=== PATIENT | male | born 1940 | race Caucasian/White ===

== ENCOUNTER 2018-05-07 16:37 | Inpatient (IN) ==
[2018-05-07 17:32] LABS: Baso # (Auto) 0.1 th/mm3 (0.0-0.2); Baso % (Auto) 0.8 % (0.0-2.0); Eos # (Auto) 0.2 th/mm3 (0.0-0.4); Eos % (Auto) 2.4 % (0.0-4.0); Hematocrit 35.7 % (39.0-51.0); Hemoglobin 12.7 gm/dL (13.0-17.0); Lymph # (Auto) 1.5 th/mm3 (1.0-4.8); Lymph % (Auto) 18.5 % (9.0-44.0); Mean Corpuscular HGB Conc 35.7 % (32.0-36.0); Mean Corpuscular Hemoglobin 32.6 pg (27.0-34.0); Mean Corpuscular Volume 91.2 fL (80.0-100.0); Mean Platelet Volume 7.7 fL (7.0-11.0); Mono # (Auto) 0.9 th/mm3 (0.0-0.9); Mono % (Auto) 11.1 % (0.0-8.0); Neut # (Auto) 5.6 th/mm3 (1.8-7.7); Neut % (Auto) 67.2 % (16.0-70.0); Platelet Count 274 th/mm3 (150-450); Red Blood Count 3.91 mil/mm3 (4.50-5.90); Red Cell Distribution Width 13.9 % (11.6-17.2); White Blood Count 8.4 th/mm3 (4.0-11.0)
--- NOTE | 2018-05-07 17:50 | ED ---
HPI General Chief complaint: Medical Clearance Stated complaint: blood in urine Time Seen by Provider: 05/07/18 16:46 Source: patient, family and old records reviewed Mode of arrival: ambulatory Limitations: no limitations History of Present Illness HPI Narrative: 77-year-old male the presents to the ED for evaluation of hematuria. Per patient has had hematuria since this morning. Per patient has had 3 bouts of hematuria. Per patient is just blood. He does take Coumadin. He was actually here yesterday for a fall he sustained. He apparently had a significant injury to his left hand and fingers where he had dislocation to require multiple attempts to relocate as well as a laceration that required stitches. Patient was put on a splint. No scans of the belly were done however. He did complain of some abdominal pain but states that for the most part he does not really have abdominal pain unless he moves a certain way and usually on he gets into the car. Otherwise he has no pain. He denies any weakness. No flank pain. No history of kidney stones. No pain with urination. Patient does show me the sample of urine he gave us any its bright red blood. He denies any history of this in the past. Per patient he does not know what his Coumadin level is. Has not seen anybody for this. Injury just occurred yesterday and he was seen here at this hospital yesterday. Home Medications Medication Instructions Recorded Confirmed bumetanide 2 mg PO TID 05/06/18 05/07/18 carvedilol 3.125 mg PO BID 05/06/18 05/07/18 diltiazem HCl 30 mg PO QID 05/06/18 05/07/18 finasteride 5 mg PO DAILY 05/06/18 05/07/18 levothyroxine 25 mcg PO DAILY 05/06/18 05/07/18 niacin 1,000 mg PO BID 05/06/18 05/07/18 pyridostigmine bromide 60 mg PO Q6H 05/06/18 05/07/18 simvastatin 10 mg PO QPM 05/06/18 05/07/18 warfarin 6 mg PO DAILY 05/06/18 05/07/18 cyanocobalamin (vitamin B-12) 1,000 mcg PO DAILY 05/07/18 05/07/18 potassium chloride 10 meq PO DAILY 05/07/18 05/07/18 Previous Rx's Medication Instructions Recorded cephalexin [Keflex] 500 mg PO Q6H 7 Days #28 cap 05/06/18 Allergies Allergy/AdvReac Type Severity Reaction Status Date / Time No Known Allergies Allergy Verified 05/06/18 06:55 Review of Systems ROS: all other systems reviewed are negative PENDING SALE TO [facility] Medical History Medical History A-fib (Acute) BPH (benign prostatic hyperplasia) (Acute) Diabetes (Acute) High cholesterol (Acute) Hypertension (Acute) Hypokalemia (Acute) Hypothyroid (Acute) Myasthenia gravis (Acute) TIA (transient ischemic attack) (Acute) Social History Social History Substance History: No History of Abuse Smoking Status: Former smoker Tobacco Type: Cigarettes How Often Do You Have a Drink Containing Alcohol: Monthly or less Recent Travel in [facility] within the Last 8 Weeks: No Recent Out of Country Travel within the Last 8 Weeks: No Immunization History Tetanus Immunization: <5 Years Exam Narrative Exam Narrative: GENERAL: well appearing but obese SKIN: Focused skin assessment warm/dry. HEAD: Atraumatic. Normocephalic. EYES: Pupils equal and round. No scleral icterus. No injection or drainage. ENT: No nasal bleeding or discharge. Mucous membranes pink and moist. Tongue is midline. No uvula deviation. NECK: Trachea midline. No JVD. CARDIOVASCULAR: Regular rate and rhythm. No murmur appreciated. RESPIRATORY: No accessory muscle use. Clear to auscultation. Breath sounds equal bilaterally. GASTROINTESTINAL: Abdomen soft, non-tender, nondistended. Hepatic and splenic margins not palpable. MUSCULOSKELETAL: No obvious deformities. No clubbing. No cyanosis. No edema. Full range of motion of the upper and lower extremities bilaterally. Patient does have a splint noted on the left arm. 2+ pulses bilaterally. Sensation is intact bilaterally. NEUROLOGICAL: Awake and alert. No obvious cranial nerve deficits. Motor grossly within normal limits. Normal speech. PSYCHIATRIC: Appropriate mood and affect; insight and judgment normal. Course Initial Documented Vital Signs Temperature 97.6 F 05/07/18 16:42 Pulse Rate 87 05/07/18 16:42 Respiratory Rate 20 05/07/18 16:42 Blood Pressure 146/82 H 05/07/18 16:42 Pulse Oximetry 95 05/07/18 16:42 Last Documented Vital Signs Temperature 97.6 F 05/07/18 16:42 Pulse Rate 87 05/07/18 16:42 Respiratory Rate 20 05/07/18 16:42 Blood Pressure 146/82 H 05/07/18 16:42 Pulse Oximetry 95 05/07/18 16:42 Medical Decision Making MDM Narrative Medical decision making narrative: 77-year-old male the presents to the ED for evaluation of blood in the urine. Patient was properly examined and was found to have signs and symptoms consistent with blood in the urine. Physical exam is very reassuring. Patient does not really have any pain in the flank or left upper quadrant with touch. Pain is only with movement especially when the patient gets in and out of the car. This pain cannot be reproduced bedside. Patient is on Coumadin and did hit his abdomen on his way down. I do recommend labs and imaging because of this. Patient agrees with this. Labs and imaging showed hemorrhage, coagulopathy. Mild anemia. At this time recommendation by my attending Dr. Shaikh is for admission, start vitamin K and FFP. Case was discussed with Dr. dawn who recommends no treatment from his standpoint and patient can follow-up outpatient when patient gets discharged. He recommends fixing the coagulopathy for now. Case was discussed with Dr. Carvajal who agrees to admission to her service. I spoke with the patient who agrees to admission. Medical Screen Exam Complete: Yes Emergency Medical Condition: Yes Differential Diagnosis Differential Diagnosis: Trauma to the bladder versus hematuria versus UTI versus cystitis versus kidney failure versus kidney injury versus active bleed Medical Records Medical records reviewed: Yes I reviewed the patient's medical records. Lab Data Lab results reviewed: Yes I reviewed the patient's lab results. Result diagrams: 05/07/18 17:09 05/07/18 17:09 Lab Results 05/07/18 05/07/18 05/07/18 Range/Units 17:09 17:09 17:09 WBC 8.4 (4.0-11.0) th/mm3 RBC 3.91 L (4.50-5.90) mil/mm3 Hgb 12.7 L (13.0-17.0) gm/dL Hct 35.7 L (39.0-51.0) % MCV 91.2 (80.0-100.0) fL MCH 32.6 (27.0-34.0) pg MCHC 35.7 (32.0-36.0) % RDW 13.9 (11.6-17.2) % Plt Count 274 (150-450) th/mm3 MPV 7.7 (7.0-11.0) fL Neut % (Auto) 67.2 (16.0-70.0) % Lymph % (Auto) 18.5 (9.0-44.0) % Stevens % (Auto) 11.1 H (0.0-8.0) % Eos % (Auto) 2.4 (0.0-4.0) % Baso % (Auto) 0.8 (0.0-2.0) % Neut # (Auto) 5.6 (1.8-7.7) th/mm3 Lymph # (Auto) 1.5 (1.0-4.8) th/mm3 Stevens # (Auto) 0.9 (0.0-0.9) th/mm3 Eos # (Auto) 0.2 (0.0-0.4) th/mm3 Baso # (Auto) 0.1 (0.0-0.2) th/mm3 WBC Differential . Differential Comment Auto diff final PT 93.7 H (9.8-11.6) sec INR 9.4 H* Ratio APTT 78.7 H (24.3-30.1) sec Sodium 142 (136-145) meq/L Potassium 3.9 (3.5-5.1) meq/L Chloride 102 (98-107) meq/L Carbon Dioxide 33.3 H (21.0-32.0) meq/L Anion Gap 7 (5-15) meq/L BUN 23 H (7-18) mg/dL Creatinine 1.54 H (0.60-1.30) mg/dL Estimated GFR 44 L (>89) mL/min Random Glucose 109 H (74-106) mg/dL Calcium 8.6 (8.5-10.1) mg/dL Urine Color (Yellw/Straw) Urine Clarity (Clear) Urine pH (5.0-8.5) Ur Specific [place] (1.002-1.035) Urine Protein (Neg-Trace) mg/dL Urine Glucose (UA) (Negative) mg/dL Urine Ketones (Negative) mg/dL Urine Occult Blood (Negative) Urine Nitrate (Negative) Urine Bilirubin (Negative) Urine Urobilinogen (Less than 2) mg/dL Ur Leukocyte Esterase (Negative) Urine RBC (0-3) /hpf Urine WBC (0-5) /hpf Ur Microscopic Review 05/07/18 Range/Units 17:09 WBC (4.0-11.0) th/mm3 RBC (4.50-5.90) mil/mm3 Hgb (13.0-17.0) gm/dL Hct (39.0-51.0) % MCV (80.0-100.0) fL MCH (27.0-34.0) pg MCHC (32.0-36.0) % RDW (11.6-17.2) % Plt Count (150-450) th/mm3 MPV (7.0-11.0) fL Neut % (Auto) (16.0-70.0) % Lymph % (Auto) (9.0-44.0) % Stevens % (Auto) (0.0-8.0) % Eos % (Auto) (0.0-4.0) % Baso % (Auto) (0.0-2.0) % Neut # (Auto) (1.8-7.7) th/mm3 Lymph # (Auto) (1.0-4.8) th/mm3 Stevens # (Auto) (0.0-0.9) th/mm3 Eos # (Auto) (0.0-0.4) th/mm3 Baso # (Auto) (0.0-0.2) th/mm3 WBC Differential Differential Comment PT (9.8-11.6) sec INR Ratio APTT (24.3-30.1) sec Sodium (136-145) meq/L Potassium (3.5-5.1) meq/L Chloride (98-107) meq/L Carbon Dioxide (21.0-32.0) meq/L Anion Gap (5-15) meq/L BUN (7-18) mg/dL Creatinine (0.60-1.30) mg/dL Estimated GFR (>89) mL/min Random Glucose (74-106) mg/dL Calcium (8.5-10.1) mg/dL Urine Color Red H (Yellw/Straw) Urine Clarity Marked H (Clear) Urine pH 7.0 (5.0-8.5) Ur Specific [place] 1.006 (1.002-1.035) Urine Protein 300 or greater H (Neg-Trace) mg/dL Urine Glucose (UA) Negative (Negative) mg/dL Urine Ketones Negative (Negative) mg/dL Urine Occult Blood Large H (Negative) Urine Nitrate Negative (Negative) Urine Bilirubin Negative (Negative) Urine Urobilinogen 0.2 (Less than 2) mg/dL Ur Leukocyte Esterase Negative (Negative) Urine RBC (0-3) /hpf Urine WBC 22 H (0-5) /hpf Ur Microscopic Review Not Reportable Imaging Data Attestation: I personally reviewed and interpreted this imaging study as follows : Radiologist's impression: Abdomen/Pelvis CT 05/07/18 17:08 CONCLUSION: 1. Apparent hemorrhage within the bladder with mild dilatation of the left ureter. In spite of all this I do not see left renal stone or contusion in this individual with a history of trauma and left upper quadrant pain. 2. The right kidney is small containing several cysts. Discharge Plan Discharge Disposition Patient Disposition: 30 Still Patient Discharge Details Diagnosis: Hematuria, Coagulopathy Physicians Team ED Provider: Kaleb Shaikh ED Midlevel Provider: Ben Lunsford Primary Care Provider: Viviana Hurtado Attending Provider: Veronica Carvajal Status ED Status: Admitted Patient
[2018-05-07 18:01] LABS: Clarity,Urine Marked (Clear); Color,Urine Red (Yellw/Straw)
[2018-05-07 18:02] LABS: Bilirubin,Urine Negative (Negative); Glucose,Urine (UA) Negative (Negative); Nitrite,Urine Negative (Negative); Specific Gravity,Urine 1.006 (1.002-1.035)
[2018-05-07 18:03] LABS: Leukocyte Esterase,Urine Negative (Negative); Urobilinogen,Urine 0.2 mg/dL (Less than 2)
[2018-05-07 18:04] LABS: Calcium 8.6 mg/dL (8.5-10.1); Carbon Dioxide 33.3 meq/L (21.0-32.0); Potassium 3.9 meq/L (3.5-5.1)
[2018-05-07 18:10] LABS: Prothrombin Time 93.7 sec (9.8-11.6)
[2018-05-07 18:11] LABS: Activated Partial Thrombo Time 78.7 sec (24.3-30.1)
[2018-05-07 18:13] LABS: INR 9.4 Ratio
--- NOTE | 2018-05-07 20:28 | CT ---
EXAM DATE: 05/07/2018 7:59 PM EDT AGE/SEX: 77 years / Male INDICATIONS: Left upper quadrant pain with hematuria. Fell yesterday. CLINICAL DATA: This is the patient's initial encounter. Patient reports that signs and symptoms have been present for 1 day and indicates a pain score of 5/10. MEDICAL/SURGICAL HISTORY: Diabetes. Hypertension. Cerebrovascular disease. None. ORAL CONTRAST: No oral contrast ingested. RADIATION DOSE: 26.79 CTDI (mGy) ; Patient body habitus COMPARISON: No prior exams available for comparison. TECHNIQUE: Multiple contiguous axial images were obtained through the abdomen and pelvis following b olus infusion of 97 ml Omnipaque 350 (iohexol) nonionic water-soluble contrast as a single exam dos e. No oral contrast ingested. Using automated exposure control and adjustment of the mA and/or kV ac cording to patient size, radiation dose was kept as low as reasonably achievable to obtain optimal di agnostic quality images. DICOM format image data is available electronically for review and comparis on. FINDINGS: Lower Lungs: The visualized lower lungs are clear. Liver: Liver is small. Colon sits anterior to the liver. Gallbladder is unremarkable. Spleen: Spleen appears normal. There is no contusion in the left upper quadrant. Pancreas: Unremarkable without mass or calcification. Kidneys: Bilateral renal cyst with a small right kidney. There is no renal contusion or stone. There is mild prominence of the left ureter with a fluid/fluid level in the bladder probably blood. Trauma is the most likely etiology given the history but I don't see a renal contusion as a source. Adrenal Glands: Unremarkable. Aorta: The aorta and proximal iliac vessels are grossly unremarkable without aneurysmal dilation. Bowel/Mesentery: The bowel loops are grossly unremarkable. The cecum and sigmoid colon have a normal configuration. Abdominal Wall: Intact. Retroperitoneum: No evidence of adenopathy in the retrocrural, para-aortic, or deep pelvic regions. Bladder: Fluid/fluid level in the bladder most likely hematocrit level from hemorrhage. Reproductive Organs: Prominent prostate Inguinal: The inguinal region is unremarkable without evidence of adenopathy. Bony Structures: Unremarkable. CONCLUSION: 1. Apparent hemorrhage within the bladder with mild dilatation of the left ureter. In spite of all t his I do not see left renal stone or contusion in this individual with a history of trauma and left u pper quadrant pain. 2. The right kidney is small containing several cysts. Electronically signed by: Elliott Kline MD 05/07/2018 8:27 PM EDT
[2018-05-07] MEDS ORDERED: Phytonadione Inj 10 MG/ML Vial SQ ONE (20:43)
[2018-05-07] MEDS ORDERED: Bisacodyl 10 MG Supp RECTAL PRN (21:06)
[2018-05-07] MEDS ORDERED: Acetaminophen 325 MG Tablet PO PRN (21:06)
--- NOTE | 2018-05-07 21:07 | P.HPIM ---
History of Present Illness Primary Care Physician: Viviana Hurtado History of Present Illness: This is a 77-year-old male with a PMH of HTN, Hyperlipidemia, A. fib on Coumadin and Myasthenia Gravis who presents the ER with complaints of hematuria since this morning. Seen in ER yesterday on 05/06/18 after mechanical fall w/ injury to left middle finger and abdomen, found to have left 3rd digit dislocation, s/p reduction in ER and underwent laceration repair of left finger , was d/c'd on Keflex which he has been taking as prescribed. Today, notes several episodes of hematuria. On Coumadin, last INR check approx 1mo ago per patient. On arrival, BP 146/82, HR 87, O2 sat 95% on RA, Afebrile. CBC unremarkable, hemoglobin 12.7. INR 9.4. Chemistry unremarkable except for creatinine 1.54, previously 1.36 on 05/27/2015. UA positive for hematuria. CT Abdomen/Pelvis with hemorrhage in the bladder and mild dilatation of left ureter. S/p Vitamin K in ER. Dr. Sparks consulted, will joseline in am, no surgical intervention at this time. - Diagnosis (1) Supratherapeutic INR (2) Bladder hemorrhage (3) Afib (4) Myasthenia gravis (5) Hematuria Review of Systems PAST FAMILY HISTORY: Reviewed. No h/o DM or CAD All other systems reviewed negative except as stated in HPI PMFSH - History History Provided By: Patient - Medical History Medical History: Medical History (Last Reviewed 05/07/18 @ 17:48 by KIRA Hebert) A-fib BPH (benign prostatic hyperplasia) Diabetes High cholesterol Hypertension Hypokalemia Hypothyroid Myasthenia gravis TIA (transient ischemic attack) - Tobacco History Smoking Status: Former smoker Tobacco Type: Cigarettes - Alcohol History How Often Do You Have a Drink Containing Alcohol: Monthly or less - Substance Use History Substance History: No History of Abuse - Travel History Recent Travel in the [place] Within the Last 8 Weeks: No Recent Travel Out of the Country Within the Last 8 Weeks: No - Immunization History Tetanus Immunization: <5 Years Medications and Allergies Allergies Allergy/AdvReac Type Severity Reaction Status Date / Time No Known Allergies Allergy Verified 05/06/18 06:55 Home Medications Medication Instructions Recorded Confirmed Type bumetanide 2 mg PO TID 05/06/18 05/07/18 History carvedilol 3.125 mg PO BID 05/06/18 05/07/18 History diltiazem HCl 30 mg PO QID 05/06/18 05/07/18 History finasteride 5 mg PO DAILY 05/06/18 05/07/18 History levothyroxine 25 mcg PO DAILY 05/06/18 05/07/18 History niacin 1,000 mg PO BID 05/06/18 05/07/18 History pyridostigmine bromide 60 mg PO Q6H 05/06/18 05/07/18 History simvastatin 10 mg PO QPM 05/06/18 05/07/18 History warfarin 6 mg PO DAILY 05/06/18 05/07/18 History cyanocobalamin (vitamin B-12) 1,000 mcg PO DAILY 05/07/18 05/07/18 History potassium chloride 10 meq PO DAILY 05/07/18 05/07/18 History Exam Vital signs: Vital Signs 05/07/18 16:42 Temperature 97.6 F Pulse Rate 87 Respiratory Rate 20 Blood Pressure 146/82 H Pulse Oximetry 95 Intake & Output 05/07/18 05/07/18 05/08/18 06:59 18:59 06:59 Weight 138.799 kg Narrative: PE: GENERAL: Extreme the pleasant elderly white male in no acute distress. at bedside. SKIN: Focused skin assessment warm and dry. HEENT: PERRLA, EOMI. No scleral icterus or conjunctival pallor. No lid lag or facial droop. CARDIOVASCULAR: Regular rate and rhythm. No obvious murmurs to auscultation. No chest tenderness to palpation. RESPIRATORY: No obvious rhonchi or wheezing. Clear to auscultation. Breath sounds equal bilaterally. GASTROINTESTINAL: Abdomen soft, non-tender, nondistended. BS normal. MUSCULOSKELETAL: Extremities without clubbing, cyanosis, or edema. No obvious deformities. Chronic venous stasis bilateral lower extremities, lymphedema wraps in place. LUE splint. NEUROLOGICAL: Awake, alert and oriented x4. No focal neurologic deficits. Moving both upper and lower extremities spontaneously. PSYCHIATRIC: Appropriate mood and affect. Insight and judgment normal. Results - Labs CBC & Chem 7: 05/07/18 17:09 05/07/18 17:09 Labs: Short CBC 05/07/18 Range/Units 17:09 WBC 8.4 (4.0-11.0) th/mm3 Hgb 12.7 L (13.0-17.0) gm/dL Hct 35.7 L (39.0-51.0) % Plt Count 274 (150-450) th/mm3 [facility] 05/07/18 17:09 Sodium 142 Potassium 3.9 Chloride 102 Carbon Dioxide 33.3 H BUN 23 H Creatinine 1.54 H Calcium 8.6 Urine 05/07/18 Range/Units 17:09 Urine Color Red H (Yellw/Straw) Urine Clarity Marked H (Clear) Urine pH 7.0 (5.0-8.5) Ur Specific [place] 1.006 (1.002-1.035) Urine Protein 300 or greater H (Neg-Trace) mg/dL Urine Glucose (UA) Negative (Negative) mg/dL - Imaging Impressions Abdomen/Pelvis CT 05/07/18 17:08 CONCLUSION: 1. Apparent hemorrhage within the bladder with mild dilatation of the left ureter. In spite of all this I do not see left renal stone or contusion in this individual with a history of trauma and left upper quadrant pain. 2. The right kidney is small containing several cysts. Caprini VTE Risk Assessment Caprini VTE Risk Assessment: No/Low Risk (score <= 1) VTE Pharmacological Exception Reason: Coagulopathy,INR elevated Caprini Risk Assessment Model: Point Value = 1 Point Value = 2 Point Value = 3 Point Value = 5 Age 41-60 Minor surgery BMI > 25 kg/m2 Swollen legs Varicose veins or History of unexplained or recurrent spontaneous Oral contraceptives or hormone replacement Sepsis (< 1 month) Serious lung disease, including pneumonia (< 1 month) Abnormal pulmonary function Acute myocardial infarction Congestive heart failure (< 1 month) History of inflammatory bowel disease Medical patient at bed rest Age 61-74 Arthroscopic surgery Major open surgery (> 45 min) Laparoscopic surgery (> 45 min) Malignancy Confined to bed (> 72 hours) Immobilizing plaster cast Central venous access Age >= 75 History of VTE Family history of VTE Factor V Leiden Prothrombin [id number] Lupus anticoagulant Anticardiolipin antibodies Elevated serum homocysteine Heparin-induced thrombocytopenia Other congenital or acquired thrombophilia Stroke (< 1 month) Elective arthroplasty Hip, pelvis, or leg fracture Acute spinal cord injury (< 1 month) Prophylaxis Regimen: Total Risk Factor Score Risk Level Prophylaxis Regimen 0-1 Low Early ambulation 2 Moderate Order ONE of the following: *Sequential Compression Device (SCD) *Heparin 5000 units SQ BID 3-4 Higher Order ONE of the following medications: *Heparin 5000 units SQ TID *Enoxaparin/Lovenox 40 mg SQ daily (WT < 150 kg, CrCl > 30 mL/min) *Enoxaparin/Lovenox 30 mg SQ daily (WT < 150 kg, CrCl > 10-29 mL/min) *Enoxaparin/Lovenox 30 mg SQ BID (WT < 150 kg, CrCl > 30 mL/min) AND/OR *Sequential Compression Device (SCD) 5 or more Highest Order ONE of the following medications: *Heparin 5000 units SQ TID (Preferred with Epidurals) *Enoxaparin/Lovenox 40 mg SQ daily (WT < 150 kg, CrCl > 30 mL/min) *Enoxaparin/Lovenox 30 mg SQ daily (WT < 150 kg, CrCl > 10-29 mL/min) *Enoxaparin/Lovenox 30 mg SQ BID (WT < 150 kg, CrCl > 30 mL/min) AND *Sequential Compression Device (SCD) Assessment and Plan - Assessment (1) Supratherapeutic INR Code(s): R79.1 - Abnormal coagulation profile Status: Acute (2) Bladder hemorrhage Code(s): N32.89 - Other specified disorders of bladder Status: Acute (3) Afib Code(s): I48.91 - Unspecified atrial fibrillation Status: Acute (4) Myasthenia gravis Code(s): G70.00 - Myasthenia gravis without (acute) exacerbation Status: Acute (5) Hematuria Code(s): R31.9 - Hematuria, unspecified Status: Acute - Plan A/P: 1. Hematuria: U/a w/ significant hematuria, s/p abdominal injury yesterday w/ supratherapeutic INR, will monitor closely, Dr. Sparks to follow 2. Bladder Hemorrhage: CT Abd/Pelvis w/ hemorrhage in the bladder w/ mild dilatation of left ureter, images reviewed. Dr. Sparks consulted by ER physician , will evaluate in am, no surgical intervention at this time. 3. Supratherapeutic INR: On Coumadin 6mg qd, INR 9.4, last INR check approx 1mo ago per patient, s/p Vit K in ER, will hold Coumadin, repeat INR in am. 4. A-fib: Chronic. Resume home Diltiazem, hold Coumadin as above, restart once within therapeutic range 5. Myasthenia Gravis: Chronic. Resume home medications. 6. DVT Prophylaxis: Elevated INR, hold Coumadin 7. Social work for d/c planning as needed 8. Case discussed w/ ER physician at length, labs/records/imaging reviewed by me. (5) Hematuria Qualifiers: Hematuria type: gross Qualified Code(s): R31.0 - Gross hematuria
[2018-05-07] MEDS: Sod Chloride 0.9% Inj 1,000 ML IV.CONT SCH (21:41)
[2018-05-07 22:09] LABS: Baso # (Auto) 0.1 th/mm3 (0.0-0.2); Baso % (Auto) 0.9 % (0.0-2.0); Eos # (Auto) 0.2 th/mm3 (0.0-0.4); Eos % (Auto) 2.3 % (0.0-4.0); Hematocrit 34.6 % (39.0-51.0); Hemoglobin 12.2 gm/dL (13.0-17.0); Lymph # (Auto) 1.4 th/mm3 (1.0-4.8); Lymph % (Auto) 17.2 % (9.0-44.0); Mean Corpuscular HGB Conc 35.1 % (32.0-36.0); Mean Corpuscular Hemoglobin 32.4 pg (27.0-34.0); Mean Corpuscular Volume 92.3 fL (80.0-100.0); Mean Platelet Volume 8.1 fL (7.0-11.0); Mono # (Auto) 0.9 th/mm3 (0.0-0.9); Neut # (Auto) 5.5 th/mm3 (1.8-7.7); Neut % (Auto) 68.6 % (16.0-70.0); Platelet Count 269 th/mm3 (150-450); Red Blood Count 3.75 mil/mm3 (4.50-5.90); Red Cell Distribution Width 13.9 % (11.6-17.2); White Blood Count 8.1 th/mm3 (4.0-11.0)
[2018-05-07] MEDS: Pyridostigmine Bromide 60 MG Tablet PO SCH (23:21)
[2018-05-08] MEDS: Pyridostigmine Bromide 60 MG Tablet PO SCH ×4 (03:14→20:54)
[2018-05-08 07:09] LABS: Baso # (Auto) 0.1 th/mm3 (0.0-0.2); Baso % (Auto) 1.2 % (0.0-2.0); Eos # (Auto) 0.1 th/mm3 (0.0-0.4); Eos % (Auto) 1.3 % (0.0-4.0); Hematocrit 34.6 % (39.0-51.0); Hemoglobin 11.3 gm/dL (13.0-17.0); Lymph # (Auto) 1.3 th/mm3 (1.0-4.8); Lymph % (Auto) 16.5 % (9.0-44.0); Mean Corpuscular HGB Conc 32.6 % (32.0-36.0); Mean Corpuscular Hemoglobin 30.4 pg (27.0-34.0); Mean Corpuscular Volume 93.2 fL (80.0-100.0); Mono # (Auto) 0.7 th/mm3 (0.0-0.9); Mono % (Auto) 9.2 % (0.0-8.0); Neut # (Auto) 5.7 th/mm3 (1.8-7.7); Neut % (Auto) 71.8 % (16.0-70.0); Platelet Count 319 th/mm3 (150-450); Red Blood Count 3.72 mil/mm3 (4.50-5.90); Red Cell Distribution Width 13.9 % (11.6-17.2)
[2018-05-08 07:37] LABS: Albumin 2.7 g/dL (3.4-5.0); Anion Gap 7 meq/L (5-15); Aspartate Aminotransferase 16 U/L (15-37); Blood Urea Nitrogen 22 mg/dL (7-18); Calcium 8.5 mg/dL (8.5-10.1); Chloride 100 meq/L (98-107); Glomerular Filtration Rate 50 mL/min (>89); Glucose,Random 122 mg/dL (74-106); Potassium 3.7 meq/L (3.5-5.1); Sodium 138 meq/L (136-145)
[2018-05-08 07:38] LABS: Alanine Aminotransferase 15 U/L (12-78)
[2018-05-08 07:40] LABS: Alkaline Phosphatase 69 U/L (45-117); Total Protein 7.6 g/dL (6.4-8.2)
[2018-05-08 07:46] LABS: INR 7.9 Ratio
--- NOTE | 2018-05-08 08:13 | P.PN ---
Subjective Interval history: Patient doing well overnight. Reports mild improvement of hematuria. Patient is tolerating p.o., and stooling well. No overnight concerns. Physical Exam Vital signs: Vital Signs 05/07/18 16:42 05/07/18 22:45 05/07/18 22:46 Temperature 97.6 F 98.0 F 97.3 F L Pulse Rate 87 60 75 Respiratory Rate 20 17 20 Blood Pressure 146/82 H 100/55 L 123/76 Pulse Oximetry 95 95 96 05/08/18 00:00 05/08/18 03:19 Temperature 97.3 F L 97.2 F L Pulse Rate 79 86 Respiratory Rate 18 18 Blood Pressure 112/56 L 122/65 Pulse Oximetry 96 96 Intake & Output 05/07/18 05/08/18 05/08/18 18:59 06:59 18:59 Intake Total 720 / 720 Balance 720 / 720 Weight 138.799 kg 138.79 kg Intake: Oral 720 / 720 Other: # Voids 5 Date of Last Bowel Movement 05/08/18 # Bowel Movements 2 Weight On Admission 138.79 kg Narrative: GENERAL: Well-nourished male, in NAD, resting comfortably in bed SKIN: Focused skin assessment warm and dry. HEENT: Normocephalic, atraumatic. PERRLA, EOMI CARDIOVASCULAR: Regular rate and rhythm. S1 and S2, no murmurs, rubs, or gallops RESPIRATORY: CTA x2 GASTROINTESTINAL: Abdomen soft, non-tender, nondistended. BS normal. MUSCULOSKELETAL: Extremities without clubbing, cyanosis, or edema. Chronic venous stasis bilateral lower extremities, lymphedema wraps in place. LUE splint. NEUROLOGICAL: Awake, alert and oriented x4. No focal neurologic deficits. Moving both upper and lower extremities spontaneously. PSYCHIATRIC: Appropriate mood and affect. Insight and judgment normal. Results - Labs CBC & Chem 7: 05/08/18 06:12 05/08/18 06:12 Laboratory Results - last 24 hr 05/07/18 05/07/18 05/07/18 17:09 17:09 17:09 WBC 8.4 RBC 3.91 L Hgb 12.7 L Hct 35.7 L MCV 91.2 MCH 32.6 MCHC 35.7 RDW 13.9 Plt Count 274 MPV 7.7 Neut % (Auto) 67.2 Lymph % (Auto) 18.5 [place] % (Auto) 11.1 H Eos % (Auto) 2.4 Baso % (Auto) 0.8 Neut # (Auto) 5.6 Lymph # (Auto) 1.5 [place] # (Auto) 0.9 Eos # (Auto) 0.2 Baso # (Auto) 0.1 WBC Differential . Differential Comment Auto diff final PT 93.7 H INR 9.4 H* APTT 78.7 H Sodium 142 Potassium 3.9 Chloride 102 Carbon Dioxide 33.3 H Anion Gap 7 BUN 23 H Creatinine 1.54 H Estimated GFR 44 L Random Glucose 109 H Calcium 8.6 Total Bilirubin AST ALT Alkaline Phosphatase Total Protein Albumin Urine Color Urine Clarity Urine pH Ur Specific [place] Urine Protein Urine Glucose (UA) Urine Ketones Urine Occult Blood Urine Nitrate Urine Bilirubin Urine Urobilinogen Ur Leukocyte Esterase Urine RBC Urine WBC Ur Microscopic Review Blood Type Antibody Screen Blood Bank Comment 05/07/18 05/07/18 05/07/18 17:09 20:46 21:35 WBC RBC Hgb Hct MCV MCH MCHC RDW Plt Count MPV Neut % (Auto) Lymph % (Auto) [place] % (Auto) Eos % (Auto) Baso % (Auto) Neut # (Auto) Lymph # (Auto) [place] # (Auto) Eos # (Auto) Baso # (Auto) WBC Differential Differential Comment PT INR APTT Sodium Potassium Chloride Carbon Dioxide Anion Gap BUN Creatinine Estimated GFR Random Glucose Calcium Total Bilirubin AST ALT Alkaline Phosphatase Total Protein Albumin Urine Color Red H Urine Clarity Marked H Urine pH 7.0 Ur Specific [place] 1.006 Urine Protein 300 or greater H Urine Glucose (UA) Negative Urine Ketones Negative Urine Occult Blood Large H Urine Nitrate Negative Urine Bilirubin Negative Urine Urobilinogen 0.2 Ur Leukocyte Esterase Negative Urine RBC Urine WBC 22 H Ur Microscopic Review Not Reportable Blood Type A Positive Antibody Screen Negative Blood Bank Comment 05/07/18 05/08/18 05/08/18 21:35 06:12 06:12 WBC 8.1 8.0 RBC 3.75 L 3.72 L Hgb 12.2 L 11.3 L Hct 34.6 L 34.6 L MCV 92.3 93.2 MCH 32.4 30.4 MCHC 35.1 32.6 RDW 13.9 13.9 Plt Count 269 319 MPV 8.1 8.0 Neut % (Auto) 68.6 71.8 H Lymph % (Auto) 17.2 16.5 [place] % (Auto) 11.0 H 9.2 H Eos % (Auto) 2.3 1.3 Baso % (Auto) 0.9 1.2 Neut # (Auto) 5.5 5.7 Lymph # (Auto) 1.4 1.3 [place] # (Auto) 0.9 0.7 Eos # (Auto) 0.2 0.1 Baso # (Auto) 0.1 0.1 WBC Differential . . Differential Comment Auto diff final Auto diff final PT 79.0 H D INR 7.9 H* APTT Sodium Potassium Chloride Carbon Dioxide Anion Gap BUN Creatinine Estimated GFR Random Glucose Calcium Total Bilirubin AST ALT Alkaline Phosphatase Total Protein Albumin Urine Color Urine Clarity Urine pH Ur Specific [place] Urine Protein Urine Glucose (UA) Urine Ketones Urine Occult Blood Urine Nitrate Urine Bilirubin Urine Urobilinogen Ur Leukocyte Esterase Urine RBC Urine WBC Ur Microscopic Review Blood Type Antibody Screen Blood Bank Comment 05/08/18 06:12 WBC RBC Hgb Hct MCV MCH MCHC RDW Plt Count MPV Neut % (Auto) Lymph % (Auto) [place] % (Auto) Eos % (Auto) Baso % (Auto) Neut # (Auto) Lymph # (Auto) [place] # (Auto) Eos # (Auto) Baso # (Auto) WBC Differential Differential Comment PT INR APTT Sodium 138 Potassium 3.7 Chloride 100 Carbon Dioxide 31.0 Anion Gap 7 BUN 22 H Creatinine 1.38 H Estimated GFR 50 L Random Glucose 122 H Calcium 8.5 Total Bilirubin 0.7 AST 16 ALT 15 Alkaline Phosphatase 69 Total Protein 7.6 Albumin 2.7 L Urine Color Urine Clarity Urine pH Ur Specific [place] Urine Protein Urine Glucose (UA) Urine Ketones Urine Occult Blood Urine Nitrate Urine Bilirubin Urine Urobilinogen Ur Leukocyte Esterase Urine RBC Urine WBC Ur Microscopic Review Blood Type Antibody Screen Blood Bank Comment - Imaging Impressions Abdomen/Pelvis CT 05/07/18 17:08 CONCLUSION: 1. Apparent hemorrhage within the bladder with mild dilatation of the left ureter. In spite of all this I do not see left renal stone or contusion in this individual with a history of trauma and left upper quadrant pain. 2. The right kidney is small containing several cysts. Assessment and Plan - Assessment (1) Supratherapeutic INR Code(s): R79.1 - Abnormal coagulation profile Status: Acute (2) Bladder hemorrhage Code(s): N32.89 - Other specified disorders of bladder Status: Acute (3) Afib Code(s): I48.91 - Unspecified atrial fibrillation Status: Chronic (4) Myasthenia gravis Code(s): G70.00 - Myasthenia gravis without (acute) exacerbation Status: Chronic (5) Hematuria Code(s): R31.9 - Hematuria, unspecified Status: Acute - Plan 77 y/o M with PMHx of AFib and MG admitted for IP mgmt of hematuria after abdominal trauma, per CT ABD found to have a bladder hemorrhage and Supratherapeutic INR 9.4 on coumadin, HD#2 1. Hematuria U/A w/ large Blood s/p abdominal injury on 05/06 supratherapeutic INR, will monitor closely Dr. Sparks to follow, appreciate assistance with management 2. Bladder Hemorrhage CT Abd/Pelvis w/ hemorrhage in the bladder w/ mild dilatation of left ureter, images reviewed Dr. Sparks consulted by ER physician, will evaluate in am, no surgical intervention at this time CT ABD/PELVIS 05/07: Apparent hemorrhage within the bladder with mild dilatation of the left ureter. In spite of all this I do not see left renal stone or contusion in this individual with a history of trauma and left upper quadrant pain. The right kidney is small containing several cysts. 3. Supratherapeutic INR: On Coumadin 6mg QD for A. Fib INR 7.9 today, 9.4 on admission Last INR check approx 1mo ago per patient s/p Vit K in ER Will cont. to hold Coumadin Repeat INR in AM 4. Acute on Chronic Kidney Injury On IVF's at 100ml/hr Cr 1.38 from 1.55 (baseline 1.3 in 2015 per EMR) Avoid nephrotoxic meds Follow-up BMP in AM 5. A. Fib, chronic Resume home Diltiazem and Coreg, hold Coumadin as above, restart once within therapeutic range 6. Myasthenia Gravis, chronic Resume home [place] 7. HTN Shanel. Bumex TID and Coreg 8. Hypothyroidism Cont. Synthroid 9. L Digit laceration s/p sutures on 05/06, has outpatient appointment for removal Will need removal while IP if still hospitalized Recommend removal 7-10 days from placement 10. HLD Cont. Statin 11. BPH Cont. Finasteride 12. DVT Prophylaxis Elevated INR, hold Coumadin 13. Dispo: F/U Uro recommendations and INR in AM Code Status: full Discussed Condition With: patient, RN, CM (5) Hematuria Qualifiers: Hematuria type: gross Qualified Code(s): R31.0 - Gross hematuria
[2018-05-08] MEDS: Sod Chloride 0.9% Inj 1,000 ML IV.CONT SCH ×2 (08:18→17:15)
[2018-05-08] MEDS: Finasteride 5 MG Tablet PO SCH (09:07)
[2018-05-08] MEDS: dilTIAZem 30 MG Tablet PO SCH ×4 (09:07→20:55)
[2018-05-08] MEDS: Senna/Docusate Sodium 8.6/50 MG Tablet PO SCH ×2 (09:07→20:55)
--- NOTE | 2018-05-08 14:31 | P.PNURO ---
Subjective Patient symptoms today: Pt was seen in his room this afternoon, sitting comfortably in his chair. no acute events overnight. VS are stable States that hematuria is slowly resolving , no clots but still red color. No problems with voiding. no dysuria. Hematuria was caused by recent fall and abnormal INR due to use of Warfarine and antbx. His INR is improving. H/H is stable Objective Vital Signs: Vital Signs 05/07/18 16:42 05/07/18 22:45 05/07/18 22:46 Temperature 97.6 F 98.0 F 97.3 F L Pulse Rate 87 60 75 Respiratory Rate 20 17 20 Blood Pressure 146/82 H 100/55 L 123/76 Pulse Oximetry 95 95 96 05/08/18 00:00 05/08/18 03:19 05/08/18 08:00 Temperature 97.3 F L 97.2 F L 96.4 F L Pulse Rate 79 86 69 Respiratory Rate 18 18 18 Blood Pressure 112/56 L 122/65 104/64 Pulse Oximetry 96 96 94 L 05/08/18 12:00 Temperature 98 F Pulse Rate 77 Respiratory Rate 18 Blood Pressure 100/58 L Pulse Oximetry 97 Intake & Output 05/07/18 05/08/18 05/08/18 18:59 06:59 18:59 Intake Total 720 / 720 1000 / 1000 Balance 720 / 720 1000 / 1000 Weight 138.799 kg 138.79 kg Intake: IV 1000 / 1000 NS Inj 1,000 ML @ 100 mls/hr IV 1000 / 1000 .CONT .Q10H [facility] Rx#:[id number] Oral 720 / 720 Other: # Voids 5 Date of Last Bowel Movement 05/08/18 05/08/18 # Bowel Movements 2 Weight On Admission 138.79 kg Result Diagrams: 05/08/18 06:12 05/08/18 06:12 Imaging: Impressions Abdomen/Pelvis CT 05/07/18 17:08 CONCLUSION: 1. Apparent hemorrhage within the bladder with mild dilatation of the left ureter. In spite of all this I do not see left renal stone or contusion in this individual with a history of trauma and left upper quadrant pain. 2. The right kidney is small containing several cysts. Medications and IVs: Active Medications Generic Name Dose Route Start Last Admin Trade Name Freq PRN Reason Stop Dose Admin Acetaminophen 650 mg 05/07/18 21:06 Tylenol PO Q4H PRN Temp > 100.4 Al Hydroxide/Mg Hydroxide 30 ml 05/07/18 21:06 Milk Of Magnesia Liq PO Q12H PRN Mild Constipation Bisacodyl 10 mg 05/07/18 21:06 Dulcolax Supp RECTAL DAILY PRN SEVERE CONSITIPATION Bumetanide 2 mg 05/08/18 09:00 05/08/18 12:50 Bumex PO 2 mg TID ADAL Administration Carvedilol 3.125 mg 05/08/18 09:00 05/08/18 09:07 Coreg PO 3.125 mg BID ADAL Administration Diltiazem HCl 30 mg 05/08/18 09:00 05/08/18 12:50 Cardizem PO 30 mg QID ADAL Administration Finasteride 5 mg 05/08/18 09:00 05/08/18 09:07 Proscar PO 5 mg DAILY ADAL Administration Sodium Chloride 1,000 mls @ 100 mls/hr 05/07/18 21:15 05/08/18 09:08 Ns Inj IV.CONT 100 mls/hr .Q10H [facility] Infusion Lactulose 30 ml 05/07/18 21:06 Lactulose Liq PO DAILY PRN SEVERE CONSITIPATION Levothyroxine Sodium 25 mcg 05/08/18 06:00 05/08/18 05:59 Synthroid PO 25 mcg DAILY@0600 ADAL Administration Ondansetron HCl 4 mg 05/07/18 21:06 Zofran Inj IV.PUSH Q6H PRN NAUSEA OR VOMITING Pravastatin Sodium 20 mg 05/08/18 21:00 Pravachol PO HS [facility] Pyridostigmine [place] 60 mg 05/07/18 21:15 05/08/18 09:08 [place] PO 60 mg Q6H ADAL Administration Senna/Docusate Sodium 1 tab 05/08/18 09:00 05/08/18 09:07 Frida-Colace PO 1 tab BID ADAL Administration Sennosides 17.2 mg 05/07/18 21:06 Senokot PO Q12H PRN Moderate Constipation Objective Remarks: NAD RRR Clear lungs Abd soft NT Assessment and Plan - Plan 77y.o m with hematuria Continue care as per primary team Manage INR No additional intervention now needed Continue Proscar Monitor PVR after voiding by doing bladder scan to make sure pt is able to empty bladder well. Pt saw Dr Abdullahi Urologist in the past, last time 2-3years ago, and can follow up with him after Discharge in a week for outpt cystoscopy Discussed Condition With: Discussed with Dr Bridger BELL attending
--- NOTE | 2018-05-08 18:58 | P.PN ---
Subjective Interval history: NOT seen Physical Exam Vital signs: Vital Signs 05/07/18 22:45 05/07/18 22:46 05/08/18 00:00 Temperature 98.0 F 97.3 F L 97.3 F L Pulse Rate 60 75 79 Respiratory Rate 17 20 18 Blood Pressure 100/55 L 123/76 112/56 L Pulse Oximetry 95 96 96 05/08/18 03:19 05/08/18 08:00 05/08/18 12:00 Temperature 97.2 F L 96.4 F L 98 F Pulse Rate 86 69 77 Respiratory Rate 18 18 18 Blood Pressure 122/65 104/64 100/58 L Pulse Oximetry 96 94 L 97 05/08/18 16:00 Temperature 97.9 F Pulse Rate 81 Respiratory Rate 18 Blood Pressure 113/60 Pulse Oximetry 99 Intake & Output 05/07/18 05/08/18 05/08/18 18:59 06:59 18:59 Intake Total 720 / 720 1999 Balance 720 / 720 1999 Weight 138.799 kg 138.79 kg Intake: IV 1999 NS Inj 1,000 ML @ 100 mls/hr IV 1999 .CONT .Q10H [facility] Rx#:[id number] Oral 720 / 720 Other: # Voids 5 Date of Last Bowel Movement 05/08/18 05/08/18 # Bowel Movements 2 Weight On Admission 138.79 kg Narrative: GENERAL: Well-nourished male, in NAD, resting comfortably in bed SKIN: Focused skin assessment warm and dry. HEENT: Normocephalic, atraumatic. PERRLA, EOMI CARDIOVASCULAR: Regular rate and rhythm. S1 and S2, no murmurs, rubs, or gallops RESPIRATORY: CTA x2 GASTROINTESTINAL: Abdomen soft, non-tender, nondistended. BS normal. MUSCULOSKELETAL: Extremities without clubbing, cyanosis, or edema. Chronic venous stasis bilateral lower extremities, lymphedema wraps in place. LUE splint. NEUROLOGICAL: Awake, alert and oriented x4. No focal neurologic deficits. Moving both upper and lower extremities spontaneously. PSYCHIATRIC: Appropriate mood and affect. Insight and judgment normal. Results - Labs CBC & Chem 7: 05/08/18 06:12 05/08/18 06:12 Laboratory Results - last 24 hr 05/07/18 05/07/18 05/07/18 20:46 21:35 21:35 WBC 8.1 RBC 3.75 L Hgb 12.2 L Hct 34.6 L MCV 92.3 MCH 32.4 MCHC 35.1 RDW 13.9 Plt Count 269 MPV 8.1 Neut % (Auto) 68.6 Lymph % (Auto) 17.2 [place] % (Auto) 11.0 H Eos % (Auto) 2.3 Baso % (Auto) 0.9 Neut # (Auto) 5.5 Lymph # (Auto) 1.4 [place] # (Auto) 0.9 Eos # (Auto) 0.2 Baso # (Auto) 0.1 WBC Differential . Differential Comment Auto diff final PT INR Sodium Potassium Chloride Carbon Dioxide Anion Gap BUN Creatinine Estimated GFR Random Glucose Calcium Total Bilirubin AST ALT Alkaline Phosphatase Total Protein Albumin Blood Type A Positive Antibody Screen Negative Blood Bank Comment 05/08/18 05/08/18 05/08/18 06:12 06:12 06:12 WBC 8.0 RBC 3.72 L Hgb 11.3 L Hct 34.6 L MCV 93.2 MCH 30.4 MCHC 32.6 RDW 13.9 Plt Count 319 MPV 8.0 Neut % (Auto) 71.8 H Lymph % (Auto) 16.5 [place] % (Auto) 9.2 H Eos % (Auto) 1.3 Baso % (Auto) 1.2 Neut # (Auto) 5.7 Lymph # (Auto) 1.3 [place] # (Auto) 0.7 Eos # (Auto) 0.1 Baso # (Auto) 0.1 WBC Differential . Differential Comment Auto diff final PT 79.0 H D INR 7.9 H* Sodium 138 Potassium 3.7 Chloride 100 Carbon Dioxide 31.0 Anion Gap 7 BUN 22 H Creatinine 1.38 H Estimated GFR 50 L Random Glucose 122 H Calcium 8.5 Total Bilirubin 0.7 AST 16 ALT 15 Alkaline Phosphatase 69 Total Protein 7.6 Albumin 2.7 L Blood Type Antibody Screen Blood Bank Comment - Imaging Impressions Abdomen/Pelvis CT 05/07/18 17:08 CONCLUSION: 1. Apparent hemorrhage within the bladder with mild dilatation of the left ureter. In spite of all this I do not see left renal stone or contusion in this individual with a history of trauma and left upper quadrant pain. 2. The right kidney is small containing several cysts. - Procedures none Assessment and Plan - Assessment (1) Supratherapeutic INR Code(s): R79.1 - Abnormal coagulation profile Status: Acute (2) Bladder hemorrhage Code(s): N32.89 - Other specified disorders of bladder Status: Acute (3) Afib Code(s): I48.91 - Unspecified atrial fibrillation Status: Chronic (4) Myasthenia gravis Code(s): G70.00 - Myasthenia gravis without (acute) exacerbation Status: Chronic (5) Hematuria Code(s): R31.9 - Hematuria, unspecified Status: Acute - Plan 77 y/o M with PMHx of AFib and MG admitted for IP mgmt of hematuria after abdominal trauma, per CT ABD found to have a bladder hemorrhage and Supratherapeutic INR 9.4 on coumadin 1. Hematuria U/A w/ large Blood s/p abdominal injury on 05/06 supratherapeutic INR, will monitor closely Dr. Sparks to follow, appreciate assistance with management 2. Bladder Hemorrhage CT Abd/Pelvis w/ hemorrhage in the bladder w/ mild dilatation of left ureter, images reviewed Dr. Sparks consulted by ER physician, no surgical intervention at this time 3. Supratherapeutic INR: On Coumadin 6mg QD for A. Fib INR today, 9.4 on admission Last INR check approx 1mo ago per patient s/p Vit K in ER Will cont. to hold Coumadin Repeat INR in AM 4. Acute on Chronic Kidney Injury On IVF's at 100ml/hr Cr 1.38 from 1.55 (baseline 1.3 in 2015 per EMR) Avoid nephrotoxic meds Follow-up BMP in AM 5. A. Fib, chronic Resume home Diltiazem and Coreg, hold Coumadin as above, restart once within therapeutic range 6. Myasthenia Gravis, chronic Resume home [place] 7. HTN Shanel. Bumex TID and Coreg 8. Hypothyroidism Cont. Synthroid 9. L Digit laceration s/p sutures on 05/06, has outpatient appointment for removal Will need removal while IP if still hospitalized Recommend removal 7-10 days from placement 10. HLD Cont. Statin 11. BPH Cont. Finasteride 12. DVT Prophylaxis Elevated INR, hold Coumadin 13. Dispo: F/U Uro recommendations and INR in AM (5) Hematuria Qualifiers: Hematuria type: gross Qualified Code(s): R31.0 - Gross hematuria
[2018-05-09] MEDS: Sod Chloride 0.9% Inj 1,000 ML IV.CONT SCH ×2 (02:50→16:16)
[2018-05-09] MEDS: Pyridostigmine Bromide 60 MG Tablet PO SCH ×4 (02:50→21:35)
[2018-05-09 05:01] LABS: Baso # (Auto) 0.1 th/mm3 (0.0-0.2); Baso % (Auto) 1.7 % (0.0-2.0); Eos # (Auto) 0.2 th/mm3 (0.0-0.4); Eos % (Auto) 2.5 % (0.0-4.0); Hematocrit 27.4 % (39.0-51.0); Hemoglobin 9.1 gm/dL (13.0-17.0); Lymph # (Auto) 1.3 th/mm3 (1.0-4.8); Lymph % (Auto) 21.2 % (9.0-44.0); Mean Corpuscular HGB Conc 33.2 % (32.0-36.0); Mean Corpuscular Hemoglobin 30.9 pg (27.0-34.0); Mean Corpuscular Volume 92.9 fL (80.0-100.0); Mono # (Auto) 0.7 th/mm3 (0.0-0.9); Mono % (Auto) 11.2 % (0.0-8.0); Neut # (Auto) 3.8 th/mm3 (1.8-7.7); Neut % (Auto) 63.4 % (16.0-70.0); Platelet Count 244 th/mm3 (150-450); Red Blood Count 2.95 mil/mm3 (4.50-5.90); White Blood Count 5.9 th/mm3 (4.0-11.0)
[2018-05-09 05:13] LABS: INR 3.3 Ratio; Prothrombin Time 33.7 sec (9.8-11.6)
[2018-05-09 05:17] LABS: Alanine Aminotransferase 12 U/L (12-78); Albumin 2.5 g/dL (3.4-5.0); Aspartate Aminotransferase 16 U/L (15-37); Blood Urea Nitrogen 26 mg/dL (7-18); Calcium 7.9 mg/dL (8.5-10.1); Carbon Dioxide 32.2 meq/L (21.0-32.0); Glomerular Filtration Rate 46 mL/min (>89); Glucose,Random 124 mg/dL (74-106)
[2018-05-09 07:22] LABS: Alkaline Phosphatase 54 U/L (45-117); Anion Gap 6 meq/L (5-15); Chloride 101 meq/L (98-107); Potassium 3.9 meq/L (3.5-5.1); Sodium 139 meq/L (136-145); Total Protein 6.4 g/dL (6.4-8.2)
[2018-05-09] MEDS: Finasteride 5 MG Tablet PO SCH (09:32)
[2018-05-09] MEDS: Senna/Docusate Sodium 8.6/50 MG Tablet PO SCH ×2 (09:32→21:35)
[2018-05-09] MEDS: dilTIAZem 30 MG Tablet PO SCH ×4 (09:32→21:35)
--- NOTE | 2018-05-09 10:34 | P.PN ---
Subjective Interval history: Follow-up hematuria. Improving hematuria no voiding difficulty. Physical Exam Vital signs: Vital Signs 05/08/18 12:00 05/08/18 16:00 05/08/18 20:00 Temperature 98 F 97.9 F 97.9 F Pulse Rate 77 81 77 Respiratory Rate 18 18 17 Blood Pressure 100/58 L 113/60 107/55 L Pulse Oximetry 97 99 95 05/09/18 00:00 05/09/18 04:00 05/09/18 08:00 Temperature 97.3 F L 97.7 F 97.2 F L Pulse Rate 67 93 H 89 Respiratory Rate 16 16 16 Blood Pressure 95/52 L 96/71 L 127/60 Pulse Oximetry 98 97 97 Intake & Output 05/08/18 05/09/18 05/09/18 18:59 06:59 18:59 Intake Total 1999 1320 / 1320 Balance 1999 1320 / 1320 Intake: IV 1999 1000 / 1000 NS Inj 1,000 ML @ 100 mls/hr IV 1999 1000 / 1000 .CONT .Q10H [facility] Rx#:[id number] Oral 320 / 320 Other: # Voids 5 Date of Last Bowel Movement 05/08/18 05/08/18 Narrative: GENERAL: Well-nourished male, in NAD, resting comfortably in bed SKIN: Focused skin assessment warm and dry. CARDIOVASCULAR: Regular rate and rhythm. S1 and S2, no murmurs, rubs, or gallops RESPIRATORY: CTA x2 GASTROINTESTINAL: Abdomen soft, non-tender, nondistended. BS normal. MUSCULOSKELETAL: Extremities without clubbing, cyanosis, or edema. Chronic venous stasis bilateral lower extremities, lymphedema wraps in place. Left hand splint. Dry blood right forearm NEUROLOGICAL: Awake, alert and oriented x4. No focal neurologic deficits. Moving both upper and lower extremities spontaneously. PSYCHIATRIC: Appropriate mood and affect. Insight and judgment normal. Results - Labs CBC & Chem 7: 05/09/18 04:16 05/09/18 04:16 Laboratory Results - last 24 hr 05/09/18 05/09/18 05/09/18 04:16 04:16 04:16 WBC 5.9 RBC 2.95 L Hgb 9.1 L D Hct 27.4 L MCV 92.9 MCH 30.9 MCHC 33.2 RDW 14.0 Plt Count 244 MPV 8.0 Neut % (Auto) 63.4 Lymph % (Auto) 21.2 [place] % (Auto) 11.2 H Eos % (Auto) 2.5 Baso % (Auto) 1.7 Neut # (Auto) 3.8 Lymph # (Auto) 1.3 [place] # (Auto) 0.7 Eos # (Auto) 0.2 Baso # (Auto) 0.1 WBC Differential . Differential Comment Auto diff final PT 33.7 H D INR 3.3 Sodium 139 Potassium 3.9 Chloride 101 Carbon Dioxide 32.2 H Anion Gap 6 BUN 26 H Creatinine 1.48 H Estimated GFR 46 L Random Glucose 124 H Calcium 7.9 L Total Bilirubin 0.6 AST 16 ALT 12 Alkaline Phosphatase 54 Total Protein 6.4 D Albumin 2.5 L - Procedures none Assessment and Plan - Assessment (1) Supratherapeutic INR Code(s): R79.1 - Abnormal coagulation profile Status: Acute (2) Bladder hemorrhage Code(s): N32.89 - Other specified disorders of bladder Status: Acute (3) Afib Code(s): I48.91 - Unspecified atrial fibrillation Status: Chronic (4) Myasthenia gravis Code(s): G70.00 - Myasthenia gravis without (acute) exacerbation Status: Chronic (5) Hematuria Code(s): R31.9 - Hematuria, unspecified Status: Acute - Plan 77 y/o M with PMHx of AFib and MG admitted for IP mgmt of hematuria after abdominal trauma, per CT ABD found to have a bladder hemorrhage and Supratherapeutic INR 9.4 on coumadin 1. Hematuria. Improving U/A w/ large Blood s/p abdominal injury on 05/06 supratherapeutic INR, will monitor closely Dr. Sparks to follow, appreciate assistance with management 2. Bladder Hemorrhage CT Abd/Pelvis w/ hemorrhage in the bladder w/ mild dilatation of left ureter, images reviewed Dr. Sparks consulted by ER physician, no surgical intervention at this time. Will need outpatient cystoscopy 3. Supratherapeutic INR: On Coumadin 6mg QD for A. Fib Improving INR down to 3.3 Last INR check approx 1mo ago per patient s/p Vit K in ER Will cont. to hold Coumadin Repeat INR in AM 4. Acute on Chronic Kidney Injury stage III. Improving On IVF's at 100ml/hr Cr 1.38 from 1.55 (baseline 1.3 in 2015 per EMR) Avoid nephrotoxic meds Follow-up BMP in AM 5. A. Fib, chronic Resume home Diltiazem and Coreg, hold Coumadin as above, restart once within therapeutic range 6. Myasthenia Gravis, chronic Resume home [place] 7. HTN Shanel. Bumex TID and Coreg 8. Hypothyroidism Cont. Synthroid 9. L Digit laceration s/p sutures on 05/06, has outpatient appointment for removal Will need removal while IP if still hospitalized Recommend removal 7-10 days from placement 10. HLD Cont. Statin 11. BPH Cont. Finasteride 12. DVT Prophylaxis Elevated INR, hold Coumadin Dispo: F/U Uro recommendations and INR in AM Discharge Planning: Possible dc in am (5) Hematuria Qualifiers: Hematuria type: gross Qualified Code(s): R31.0 - Gross hematuria
--- NOTE | 2018-05-09 15:38 | P.DCO ---
- Diagnosis (1) Supratherapeutic INR Status: Acute (2) Bladder hemorrhage Status: Acute (3) Afib Status: Chronic (4) Myasthenia gravis Status: Chronic (5) Hematuria Status: Acute - Physical Therapy Order: Evaluate and treat, Improve ambulation, Strength and gait training - Home Health Nursing Order: Medical education, Medication education-adverse effect (needs PT/INR q Mon and thurs), Wound care and dressing changes, Nursing assessment with vital signs - Case Management Consult Yes - Certification I have seen patient Santy Pollard on 05/09/18. My clinical findings support the need for the requested home health care services because: Deconditioned with increased weakness I certify that my clinical findings support that this patient is homebound because: Unsteady gait/balance (5) Hematuria Qualifiers: Hematuria type: gross Qualified Code(s): R31.0 - Gross hematuria
[2018-05-10] MEDS: Sod Chloride 0.9% Inj 1,000 ML IV.CONT SCH ×4 (02:50→21:27)
[2018-05-10] MEDS: Pyridostigmine Bromide 60 MG Tablet PO SCH ×4 (03:00→21:26)
[2018-05-10 05:25] LABS: Baso # (Auto) 0.1 th/mm3 (0.0-0.2); Baso % (Auto) 1.2 % (0.0-2.0); Eos # (Auto) 0.2 th/mm3 (0.0-0.4); Eos % (Auto) 3.1 % (0.0-4.0); Hematocrit 26.2 % (39.0-51.0); Lymph # (Auto) 1.2 th/mm3 (1.0-4.8); Mean Corpuscular HGB Conc 34.3 % (32.0-36.0); Mean Corpuscular Hemoglobin 31.3 pg (27.0-34.0); Mean Corpuscular Volume 91.2 fL (80.0-100.0); Mean Platelet Volume 8.2 fL (7.0-11.0); Mono # (Auto) 0.7 th/mm3 (0.0-0.9); Mono % (Auto) 11.3 % (0.0-8.0); Neut # (Auto) 3.7 th/mm3 (1.8-7.7); Neut % (Auto) 63.4 % (16.0-70.0); Platelet Count 254 th/mm3 (150-450); Red Blood Count 2.87 mil/mm3 (4.50-5.90); Red Cell Distribution Width 14.2 % (11.6-17.2); White Blood Count 5.9 th/mm3 (4.0-11.0)
[2018-05-10 05:36] LABS: INR 1.5 Ratio; Prothrombin Time 15.4 sec (9.8-11.6)
[2018-05-10 06:00] LABS: Carbon Dioxide 29.3 meq/L (21.0-32.0); Magnesium 2.1 mg/dL (1.5-2.5); Potassium 3.7 meq/L (3.5-5.1)
--- NOTE | 2018-05-10 08:07 | P.PN ---
Subjective Interval history: Follow-up hematuria. Patient having dark brown urine no difficulty with urination. Discussed with nursing, need GI update and clearance for Coumadin INR 1.5 Physical Exam Vital signs: Vital Signs 05/09/18 12:00 05/09/18 16:00 05/09/18 20:00 Temperature 97.1 F L 97.3 F L 97.8 F Pulse Rate 73 84 81 Respiratory Rate 16 16 19 Blood Pressure 108/54 L 152/65 H 111/59 L Pulse Oximetry 99 98 96 05/10/18 00:00 05/10/18 04:00 Temperature 97.9 F 97.1 F L Pulse Rate 94 H 80 Respiratory Rate 18 18 Blood Pressure 124/68 114/60 Pulse Oximetry 94 L 96 Intake & Output 05/09/18 05/10/18 05/10/18 18:59 06:59 18:59 Intake Total 3000 / 3000 1000 / 1000 Output Total 900 / 900 1625 / 1625 Balance 2100 / 2100 -625 / -625 Weight 139 kg Intake: IV 1000 / 1000 1000 / 1000 NS Inj 1,000 ML @ 100 mls/hr IV 1000 / 1000 1000 / 1000 .CONT .Q10H ADAL Rx#:[id number] Oral 1999 / 1999 Output: Urine 900 / 900 1625 / 1625 Other: Date of Last Bowel Movement 05/08/18 # Bowel Movements 1 Narrative: GENERAL: Well-nourished male, in NAD, resting comfortably in bed SKIN: Focused skin assessment warm and dry. CARDIOVASCULAR: Regular rate and rhythm. S1 and S2, no murmurs, rubs, or gallops RESPIRATORY: CTA x2 GASTROINTESTINAL: Abdomen soft, non-tender, nondistended. BS normal. MUSCULOSKELETAL: Extremities without clubbing, cyanosis, or edema. Chronic venous stasis bilateral lower extremities, lymphedema wraps in place. Left hand splint. Dry blood right forearm NEUROLOGICAL: Awake, alert and oriented x4. No focal neurologic deficits. Moving both upper and lower extremities spontaneously. Results - Labs CBC & Chem 7: 05/10/18 04:30 05/10/18 04:30 Laboratory Results - last 24 hr 05/10/18 05/10/18 05/10/18 04:30 04:30 04:30 WBC 5.9 RBC 2.87 L Hgb 9.0 L Hct 26.2 L MCV 91.2 MCH 31.3 MCHC 34.3 RDW 14.2 Plt Count 254 MPV 8.2 Neut % (Auto) 63.4 Lymph % (Auto) 21.0 [place] % (Auto) 11.3 H Eos % (Auto) 3.1 Baso % (Auto) 1.2 Neut # (Auto) 3.7 Lymph # (Auto) 1.2 [place] # (Auto) 0.7 Eos # (Auto) 0.2 Baso # (Auto) 0.1 WBC Differential . Differential Comment Auto diff final PT 15.4 H D INR 1.5 Sodium 139 Potassium 3.7 Chloride 103 Carbon Dioxide 29.3 Anion Gap 7 BUN 26 H Creatinine 1.74 H Estimated GFR 38 L Random Glucose 120 H Calcium 8.0 L Magnesium 2.1 - Procedures none Assessment and Plan - Assessment (1) Supratherapeutic INR Code(s): R79.1 - Abnormal coagulation profile Status: Acute (2) Bladder hemorrhage Code(s): N32.89 - Other specified disorders of bladder Status: Acute (3) Afib Code(s): I48.91 - Unspecified atrial fibrillation Status: Chronic (4) Myasthenia gravis Code(s): G70.00 - Myasthenia gravis without (acute) exacerbation Status: Chronic (5) Hematuria Code(s): R31.9 - Hematuria, unspecified Status: Acute - Plan 77 y/o M with PMHx of AFib and MG admitted for IP mgmt of hematuria after abdominal trauma, per CT ABD found to have a bladder hemorrhage and Supratherapeutic INR 9.4 on coumadin 1. Hematuria. Improving U/A w/ large Blood s/p abdominal injury on 05/06 supratherapeutic INR, resolved Dr. Sparks to follow, appreciate assistance with management 2. Bladder Hemorrhage 2/[address] Abd/Pelvis w/ hemorrhage in the bladder w/ mild dilatation of left ureter, images reviewed Dr. Sparks consulted by ER physician, no surgical intervention at this time. Will need outpatient cystoscopy 3. Supratherapeutic INR: On Coumadin 6mg QD for A. Fib Result INR 1.5 Last INR check approx 1mo ago per patient s/p Vit K in ER Repeat INR in AM Will need GI clearance for reinitiation of Coumadin 4. Acute on Chronic Kidney Injury stage III. Worse creatinine 1.74 likely from bleeding Increase IV fluid to 125 cc an hour and hold Bumex Cr 1.38 from 1.55 (baseline 1.3 in 2015 per EMR) Avoid nephrotoxic meds Follow-up BMP in AM 5. A. Fib, chronic Resume home Diltiazem and Coreg, hold Coumadin as above, restart once within therapeutic range and cleared by ARABELLA 6. Myasthenia Gravis, chronic Resume home [place] 7. HTN Shanel.Coreg 8. Hypothyroidism Cont. Synthroid 9. L Digit laceration s/p sutures on 05/06, has outpatient appointment for removal Will need removal while IP if still hospitalized Recommend removal 7-10 days from placement 10. HLD Cont. Statin 11. BPH Cont. Finasteride 12. DVT Prophylaxis Elevated INR, hold Coumadin Dispo: F/U Uro recommendations for dc. PT eval Discharge Planning: Possible dc in am (5) Hematuria Qualifiers: Hematuria type: gross Qualified Code(s): R31.0 - Gross hematuria
[2018-05-10] MEDS: dilTIAZem 30 MG Tablet PO SCH ×4 (09:27→21:26)
[2018-05-10] MEDS: Finasteride 5 MG Tablet PO SCH (09:28)
[2018-05-10] MEDS: Senna/Docusate Sodium 8.6/50 MG Tablet PO SCH ×2 (09:28→21:26)
[2018-05-11] MEDS: Sod Chloride 0.9% Inj 1,000 ML IV.CONT SCH ×2 (03:24→05:23)
[2018-05-11] MEDS: Pyridostigmine Bromide 60 MG Tablet PO SCH ×2 (03:39→08:38)
[2018-05-11 06:26] LABS: Baso # (Auto) 0.1 th/mm3 (0.0-0.2); Baso % (Auto) 1.1 % (0.0-2.0); Eos # (Auto) 0.2 th/mm3 (0.0-0.4); Eos % (Auto) 3.3 % (0.0-4.0); Hematocrit 25.7 % (39.0-51.0); Hemoglobin 8.6 gm/dL (13.0-17.0); Lymph % (Auto) 18.3 % (9.0-44.0); Mean Corpuscular HGB Conc 33.4 % (32.0-36.0); Mean Corpuscular Hemoglobin 31.1 pg (27.0-34.0); Mean Corpuscular Volume 93.2 fL (80.0-100.0); Mean Platelet Volume 8.2 fL (7.0-11.0); Mono # (Auto) 0.5 th/mm3 (0.0-0.9); Mono % (Auto) 9.5 % (0.0-8.0); Neut # (Auto) 3.8 th/mm3 (1.8-7.7); Neut % (Auto) 67.8 % (16.0-70.0); Platelet Count 236 th/mm3 (150-450); Red Blood Count 2.75 mil/mm3 (4.50-5.90); White Blood Count 5.6 th/mm3 (4.0-11.0)
[2018-05-11 06:34] LABS: INR 1.2 Ratio; Prothrombin Time 12.6 sec (9.8-11.6)
[2018-05-11 06:55] LABS: Calcium 8.1 mg/dL (8.5-10.1); Carbon Dioxide 27.7 meq/L (21.0-32.0); Magnesium 2.2 mg/dL (1.5-2.5); Potassium 3.8 meq/L (3.5-5.1)
--- NOTE | 2018-05-11 08:27 | P.PN ---
Subjective Interval history: Follow-up hematuria, anemia and acute kidney injury. He is doing okay and wants to go home. His urine is blue colored. He agrees not to be on anticoagulation until he has cystoscopy or cleared by . He accepts the risk of stroke not being on Coumadin. Physical Exam Vital signs: Vital Signs 05/10/18 12:00 05/10/18 16:00 05/10/18 20:00 Temperature 97.5 F L 97 F L 97.4 F L Pulse Rate 76 73 77 Respiratory Rate 17 17 17 Blood Pressure 129/70 122/62 116/59 L Pulse Oximetry 97 97 95 05/11/18 00:00 05/11/18 04:00 Temperature 97.8 F 97.5 F L Pulse Rate 71 78 Respiratory Rate 18 Blood Pressure 125/65 125/66 Pulse Oximetry 96 98 Intake & Output 05/10/18 05/11/18 05/11/18 18:59 06:59 18:59 Intake Total 1240 / 1240 1999 Output Total 1925 / 1925 600 / 600 Balance -685 / -685 1400 / 1400 Weight 138.7 kg Intake: IV 1000 / 1000 1999 NS Inj 1,000 ML @ 125 mls/hr IV 1000 / 1000 1999 .CONT .Q8H [facility] Rx#:[id number] Oral 240 / 240 Output: Urine 1925 / 1925 600 / 600 Other: # Voids 5 Date of Last Bowel Movement 05/08/18 05/11/18 # Bowel Movements 1 2 Narrative: GENERAL: Well-nourished male, in NAD CARDIOVASCULAR: Regular rate and rhythm. S1 and S2, no murmurs, rubs, or gallops RESPIRATORY: CTA x2 GASTROINTESTINAL: Abdomen soft, non-tender, nondistended. BS normal. MUSCULOSKELETAL: Extremities without clubbing, cyanosis, or edema. Chronic venous stasis bilateral lower extremities, lymphedema wraps in place. Left hand splint. Dry blood right forearm NEUROLOGICAL: Awake, alert and oriented x4. Moving both upper and lower extremities spontaneously. Results - Labs CBC & Chem 7: 05/11/18 05:19 05/11/18 05:19 Laboratory Results - last 24 hr 05/11/18 05/11/18 05/11/18 05:19 05:19 05:19 WBC 5.6 RBC 2.75 L Hgb 8.6 L Hct 25.7 L MCV 93.2 MCH 31.1 MCHC 33.4 RDW 14.0 Plt Count 236 MPV 8.2 Neut % (Auto) 67.8 Lymph % (Auto) 18.3 [place] % (Auto) 9.5 H Eos % (Auto) 3.3 Baso % (Auto) 1.1 Neut # (Auto) 3.8 Lymph # (Auto) 1.0 [place] # (Auto) 0.5 Eos # (Auto) 0.2 Baso # (Auto) 0.1 WBC Differential . Differential Comment Auto diff final PT 12.6 H INR 1.2 Sodium 142 Potassium 3.8 Chloride 106 Carbon Dioxide 27.7 Anion Gap 8 BUN 26 H Creatinine 1.43 H Estimated GFR 48 L Random Glucose 116 H Calcium 8.1 L Magnesium 2.2 - Procedures none Assessment and Plan - Assessment (1) Supratherapeutic INR Code(s): R79.1 - Abnormal coagulation profile Status: Acute (2) Bladder hemorrhage Code(s): N32.89 - Other specified disorders of bladder Status: Acute (3) Afib Code(s): I48.91 - Unspecified atrial fibrillation Status: Chronic (4) Myasthenia gravis Code(s): G70.00 - Myasthenia gravis without (acute) exacerbation Status: Chronic (5) Hematuria Code(s): R31.9 - Hematuria, unspecified Status: Acute - Plan 77 y/o M with PMHx of AFib and MG admitted for IP mgmt of hematuria after abdominal trauma, per CT ABD found to have a bladder hemorrhage and Supratherapeutic INR 9.4 on coumadin 1. Hematuria. Improved U/A w/ large Blood s/p abdominal injury on 05/06 supratherapeutic INR, resolved Dr. Sparks to follow, appreciate assistance with management 2. Bladder Hemorrhage 2/[address] Abd/Pelvis w/ hemorrhage in the bladder w/ mild dilatation of left ureter, images reviewed Dr. Sparks consulted by ER physician, no surgical intervention at this time. Will need outpatient cystoscopy 3. Supratherapeutic INR: On Coumadin 6mg QD for A. Fib Result INR 1.5 Last INR check approx 1mo ago per patient s/p Vit K in ER He agrees not to be on anticoagulation until he has cystoscopy or cleared by . He accepts the risk of stroke not being on Coumadin. 4. Acute on Chronic Kidney Injury stage III. Improved almost back to baseline Discontinue IV fluid and restart Bumex Cr 1.38 from 1.55 (baseline 1.3 in 2015 per EMR) Avoid nephrotoxic meds Follow-up BMP 5. A. Fib, chronic Resume home Diltiazem and Coreg, hold Coumadin as above, restart once within therapeutic range and cleared by 6. Myasthenia Gravis, chronic Resume home [place] 7. HTN Shanel.Coreg 8. Hypothyroidism Cont. Synthroid 9. L Digit laceration s/p sutures on 05/06, has outpatient appointment for removal Will need removal while IP if still hospitalized Recommend removal 7-10 days from placement 10. HLD Cont. Statin 11. BPH Cont. Finasteride 12. DVT Prophylaxis No anticoagulation secondary to bladder hemorrhage Discharge Planning: Possible dc pending recommendation (5) Hematuria Qualifiers: Hematuria type: gross Qualified Code(s): R31.0 - Gross hematuria
[2018-05-11] MEDS: Senna/Docusate Sodium 8.6/50 MG Tablet PO SCH (08:38)
[2018-05-11] MEDS: Finasteride 5 MG Tablet PO SCH (08:38)
[2018-05-11] MEDS: dilTIAZem 30 MG Tablet PO SCH (08:38)
[2018-05-11 09:35] VITALS: BP 122/58; PULSE 81; RESP 19; TEMP 97.2; O2SAT 96
--- NOTE | 2018-05-11 13:04 | P.DS ---
Date of admission: 05/07/18 21:07 Primary care physician: Viviana Hurtado Brief History from admission: This is a 77-year-old male with a PMH of HTN, Hyperlipidemia, A. fib on Coumadin and Myasthenia Gravis who presents the ER with complaints of hematuria since this morning. Seen in ER yesterday on 05/06/18 after mechanical fall w/ injury to left middle finger and abdomen, found to have left 3rd digit dislocation, s/p reduction in ER and underwent laceration repair of left finger , was d/c'd on Keflex which he has been taking as prescribed. Today, notes several episodes of hematuria. On Coumadin, last INR check approx 1mo ago per patient. On arrival, BP 146/82, HR 87, O2 sat 95% on RA, Afebrile. CBC unremarkable, hemoglobin 12.7. INR 9.4. Chemistry unremarkable except for creatinine 1.54, previously 1.36 on 05/27/2015. UA positive for hematuria. CT Abdomen/Pelvis with hemorrhage in the bladder and mild dilatation of left ureter. S/p Vitamin K in ER. Dr. Sparks consulted, will eval in am, no surgical intervention at this time. DS: Diagnosis - Discharge Diagnosis (1) Supratherapeutic INR Status: Acute (2) Bladder hemorrhage Status: Acute (3) Afib Status: Chronic (4) Myasthenia gravis Status: Chronic (5) Hematuria Status: Acute DS: Summary Hospital Course: 77 y/o M with PMHx of AFib and MG admitted for IP mgmt of hematuria after abdominal trauma, per CT ABD found to have a bladder hemorrhage and Supratherapeutic INR 9.4 on coumadin 1. Hematuria. Improved U/A w/ large Blood s/p abdominal injury on 05/06 supratherapeutic INR, resolved Dr. Sparks to follow, appreciate assistance with management 2. Bladder Hemorrhage 2/[address] Abd/Pelvis w/ hemorrhage in the bladder w/ mild dilatation of left ureter, images reviewed Dr. Sparks consulted by ER physician, no surgical intervention at this time. Will need outpatient cystoscopy 3. Supratherapeutic INR: On Coumadin 6mg QD for A. Fib Result INR 1.5 Last INR check approx 1mo ago per patient s/p Vit K in ER He agrees not to be on anticoagulation until he has cystoscopy or cleared by . He accepts the risk of stroke not being on Coumadin. 4. Acute on Chronic Kidney Injury stage III. Improved almost back to baseline Discontinue IV fluid and restart Bumex Cr 1.38 from 1.55 (baseline 1.3 in 2015 per EMR) Avoid nephrotoxic meds Follow-up BMP 5. A. Fib, chronic Resume home Diltiazem and Coreg, hold Coumadin as above, restart once within therapeutic range and cleared by 6. Myasthenia Gravis, chronic Resume home [place] 7. HTN Shanel.Coreg 8. Hypothyroidism Cont. Synthroid 9. L Digit laceration s/p sutures on 05/06, has outpatient appointment for removal Will need removal while IP if still hospitalized Recommend removal 7-10 days from placement 10. HLD Cont. Statin 11. BPH Cont. Finasteride 12. DVT Prophylaxis No anticoagulation secondary to bladder hemorrhage - Time Spent with Patient Total time spent providing and/or coordinating discharge services: Greater than 30 minutes - Quality: VTE Deep Vein Thrombosis/Pulmonary Embolism Present on Admission: No Exam Vital signs: Vital Signs 05/10/18 16:00 05/10/18 20:00 05/11/18 00:00 Temperature 97 F L 97.4 F L 97.8 F Pulse Rate 73 77 71 Respiratory Rate 17 17 18 Blood Pressure 122/62 116/59 L 125/65 Pulse Oximetry 97 95 96 05/11/18 04:00 05/11/18 08:00 Temperature 97.5 F L 97.2 F L Pulse Rate 78 81 Respiratory Rate 18 19 Blood Pressure 125/66 122/58 L Pulse Oximetry 98 96 Intake & Output 05/10/18 05/11/18 05/11/18 18:59 06:59 18:59 Intake Total 1240 / 1240 1999 375 / 375 Output Total 1925 / 1925 600 / 600 Balance -685 / -685 1400 / 1400 375 / 375 Weight 138.7 kg Intake: IV 1000 / 1000 1999 / 1999 375 / 375 NS Inj 1,000 ML @ 125 mls/hr IV 1000 / 1000 1999 375 / 375 .CONT .Q8H ADAL Rx#:[id number] Oral 240 / 240 Output: Urine 1924 / 1925 600 / 600 Other: # Voids 5 Date of Last Bowel Movement 05/08/18 05/11/1818 # Bowel Movements 1 2 Narrative: GENERAL: Well-nourished male, in NAD CARDIOVASCULAR: Regular rate and rhythm. S1 and S2, no murmurs, rubs, or gallops RESPIRATORY: CTA x2 GASTROINTESTINAL: Abdomen soft, non-tender, nondistended. BS normal. MUSCULOSKELETAL: Extremities without clubbing, cyanosis, or edema. Chronic venous stasis bilateral lower extremities, lymphedema wraps in place. Left hand splint. Dry blood right forearm NEUROLOGICAL: Awake, alert and oriented x4. Moving both upper and lower extremities spontaneously. Results Procedures completed during hospitalization: none Labs on day of discharge: Labs from last 24 hours 05/11/18 05/11/18 05/11/18 05:19 05:19 05:19 WBC 5.6 RBC 2.75 L Hgb 8.6 L Hct 25.7 L MCV 93.2 MCH 31.1 MCHC 33.4 RDW 14.0 Plt Count 236 MPV 8.2 Neut % (Auto) 67.8 Lymph % (Auto) 18.3 [place] % (Auto) 9.5 H Eos % (Auto) 3.3 Baso % (Auto) 1.1 Neut # (Auto) 3.8 Lymph # (Auto) 1.0 [place] # (Auto) 0.5 Eos # (Auto) 0.2 Baso # (Auto) 0.1 WBC Differential . Differential Comment Auto diff final PT 12.6 H INR 1.2 Sodium 142 Potassium 3.8 Chloride 106 Carbon Dioxide 27.7 Anion Gap 8 BUN 26 H Creatinine 1.43 H Estimated GFR 48 L Random Glucose 116 H Calcium 8.1 L Magnesium 2.2 - Impressions ITS Impressions Abdomen/Pelvis CT 05/07/18 17:08 CONCLUSION: 1. Apparent hemorrhage within the bladder with mild dilatation of the left ureter. In spite of all this I do not see left renal stone or contusion in this individual with a history of trauma and left upper quadrant pain. 2. The right kidney is small containing several cysts. Discharge Plan - Discharge Disposition Patient Disposition: 01 Discharge Home - Discharge Condition Condition: Stable - Discharge Order Discharge Orders: Discharge Order (Routine); Ordered 05/11/18 Ordered By: Blaise Pineda - Physicians Team Primary Care Provider: Viviana Hurtado Attending Provider: Blaise Pineda Other Providers: Lamont Sparks MD
== END 2018-05-11 11:35 | disposition home or self-care (01) ==
LOC: NEPE 16:37 → NEDA 21:07 → N06 22:30
PROVIDERS: ADMIT Internal Medicine; ATTEND Internal Medicine